=== PATIENT | female | born 1935 | race Caucasian/White ===

== ENCOUNTER 2019-07-23 21:55 | Inpatient (IN) | payer MEDICARE, BC ==
[2019-07-23] MEDS ORDERED: Fentanyl 100 MCG/2 ML VIAL ONE (22:25)
[2019-07-23 22:34] LABS: #Basophils 0.1 thou/uL (0.0-0.2); #Eosinphils 0.1 thou/uL (0.0-0.7); #Lymphocytes 3.4 thou/uL (1.20-3.40); #Monocytes 0.4 thou/uL (0.11-0.59); #Neutrophils 3.1 thou/uL (1.40-6.50); %Basophils 1.3 % (0.0-1.0); %Eosinophils 1.4 % (0.0-10.0); %Lymphocytes 47.9 % (21.0-51.0); %Monocytes 5.7 % (0.0-10.0); %Neutrophils 43.7 % (42.0-75.0); Hemoglobin 13.6 g/dL (12.0-16.0); Mean Corpuscular HGB CONC 34.2 g/dL (32.0-36.0); Mean Corpuscular Hemoglobin 33.5 pg (27.0-31.0); Mean Corpuscular Volume 97.7 fL (78.0-98.0); Mean Platelet Volume 9.9 fL (7.4-10.4); Platelet Count 170 thou/uL (130-400); RBC Distribution Width 11.1 % (11.5-14.5); Red Blood Cell (RBC) Count 4.07 mill/uL (4.20-5.40); White Blood Cell (WBC) Count 7.1 thou/uL (4.8-10.8)
--- NOTE | 2019-07-23 22:52 | RAD ---
XR Femur Rt 2 View STANDARD History: Trauma. Fall Comparison: None. Findings: Right subcapital femoral neck fracture with lateral displacement. Remainder of the femur ap pears be intact including the right knee arthroplasty. Impression: Subcapital right femoral neck fracture with lateral displacement 2.3 cm.
--- NOTE | 2019-07-23 23:03 | RAD ---
XR Pelvis AP STANDARD History: Fall Comparison: None. Findings: Subcapital right femoral neck fracture with lateral displacement. The right obturator ring is intact. Left femoral neck appears to be intact. Mild narrowing of the pubic symphysis. Impression: Displaced right subcapital femoral neck fracture.
[2019-07-23 23:39] LABS: ALT (SGPT) 15 U/L (8-55); AST (SGOT) 24 U/L (5-34); Albumin 3.8 g/dL (3.4-4.8); Alkaline Phosphatase 58 U/L (40-110); Anion Gap 12 mmol/L (10-20); BUN (Urea Nitrogen) 30 mg/dL (9.8-20.1); Bilirubin, Total 0.3 mg/dL (0.2-1.2); Calc. Creatinine Clearance 0 mL/min (70-130); Calcium 8.7 mg/dL (7.8-10.44); Carbon Dioxide 25 mmol/L (23-31); Chloride 107 mmol/L (98-107); Estimated GFR-MDRD 65; Glucose 107 mg/dL (83-110); Potassium 3.7 mmol/L (3.5-5.1); Protein, Total 6.8 g/dL (6.0-8.3); Sodium 140 mmol/L (136-145)
[2019-07-24] MEDS ORDERED: Morphine 2 MG/ML SYRINGE ONE (00:04)
[2019-07-24] MEDS ORDERED: Ondansetron PF 4 MG/2 ML Vial ONE ×2 (00:06→10:51)
[2019-07-24] MEDS ORDERED: Dextrose 5% in Water 1,000 ML IV PRN (01:20)
[2019-07-24] MEDS ORDERED: Cyclobenzaprine 10 MG TAB PO PRN (01:20)
[2019-07-24] MEDS ORDERED: traMADol HCl 50 MG TAB PO PRN ×2 (01:20)
[2019-07-24] MEDS ORDERED: Dextrose 50% Abboject 50 ML SYRINGE SLOW IVP PRN (01:20)
[2019-07-24] MEDS ORDERED: hydrALAZINE 20 MG/ML VIAL SLOW IVP PRN (01:20)
[2019-07-24] MEDS: Morphine 2 MG/ML SYRINGE SLOW IVP PRN ×4 (01:40→09:16)
[2019-07-24] MEDS: Ondansetron PF 4 MG/2 ML Vial IVP PRN (01:40)
[2019-07-24] MEDS: Acetaminophen 325 MG TAB PO SCH ×4 (01:42→20:35)
[2019-07-24] MEDS: Ibuprofen 600 MG TAB PO SCH ×3 (01:46→17:13)
[2019-07-24] MEDS: Sodium Chloride 0.9% 1,000 ML IV SCH ×2 (01:46→10:42)
--- NOTE | 2019-07-24 01:53 | HP ---
This is Jim Gandhi PA-C dictating a report for García Ames MD. REQUESTING PHYSICIAN: Dr. Aj. ATTENDING SURGEON: Dr. Ames. CONSULTATIONS: Orthopedics, Dr. Carrillo. HISTORY OF PRESENT ILLNESS: The patient is an 84-year-old woman who was at home when she tripped and fell onto her right hip. She was brought to the emergency department, where she underwent evaluation and examination, was noted to have a right hip fracture. The patient denied loss of consciousness or hitting her head and she denied any syncopal episodes prior to her fall. ALLERGIES: CODEINE, OPIOIDS, AND PENICILLIN. OF NOTE, THE PATIENT RECEIVED FENTANYL AND MORPHINE IN THE EMERGENCY DEPARTMENT WITHOUT ISSUE. CURRENT MEDICATIONS: 1. Metoprolol. 2. Synthroid. 3. Vitamin B6. 4. Folic acid. 5. Aspirin. PAST MEDICAL HISTORY: hypothyroid, hypertension, pacemaker. PAST SURGICAL HISTORY: Bilateral knee replacement and pacemaker placement. 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 SOCIAL HISTORY: The patient lives at home with family. She denies drug, tobacco, or alcohol use. REVIEW OF SYSTEMS: 10-point review of systems is negative as otherwise stated. PHYSICAL EXAMINATION: VITAL SIGNS: Blood pressure 169/79, heart rate 73, respirations 18, oxygen saturation 94% on room air, and temperature is 98.1. GENERAL: The patient is resting comfortably in bed. She is awake, alert, and oriented x3. [place] Coma Scale is 15. HEENT: Head is normocephalic atraumatic. Eyes, extraocular motion intact. PERRLA bilaterally. Ears are atraumatic without discharge. Nose is atraumatic without discharge. Oropharynx is clear. NECK: Nontender. Trachea is midline with no JVD. CHEST: Clear to auscultation with good inspiratory and expiratory effort. HEART: Regular rate and rhythm. ABDOMEN: Soft, flat with active bowel sounds. EXTREMITIES: Neurovascularly intact x4. The patient has tenderness to palpation to the right hip consistent with her fracture. BACK: By report is atraumatic and nontender. LABORATORY FINDINGS: White blood cell count 7.1, hemoglobin 13.6, hematocrit 39.8, platelets 170. Sodium 140, potassium 3.7, chloride 107, CO2 of 25, BUN 30, creatinine 0.83, glucose 65. LFTs are unremarkable. RADIOGRAPHIC REPORTS: AP pelvis shows a displaced right subcapital femoral neck fracture. Views of the right femur again show the subcapital right femoral neck fracture with lateral displacement. ASSESSMENT: 1. Status post ground level fall. 2. Right femoral neck fracture. 3. Acute pain secondary to above. 4. History of hypothyroid, hypertension, and pacemaker. PLAN: Plan will be to admit the patient to the surgical floor. She will be made n.p.o. after midnight. She will have pain control, pulmonary toilet, gastritis, mechanical VTE prophylaxis. Postoperatively, we will begin physical and occupational therapy and discuss placement at that time. The evaluation, examination, laboratory, and radiographic findings were discussed with Dr. Carrillo and Dr. Ames. Job ID: [id number] [facility]
[2019-07-24 02:14] VITALS: BMI 27.8
[2019-07-24 06:21] LABS: Prothrombin Time 13.1 SEC (12.0-14.7)
[2019-07-24 06:22] LABS: PTT 28.4 SEC (22.9-36.1)
[2019-07-24 06:23] LABS: #Lymphocytes 1.1 thou/uL (1.20-3.40); #Monocytes 0.5 thou/uL (0.11-0.59); %Basophils 0.1 % (0.0-1.0); %Eosinophils 0.1 % (0.0-10.0); %Lymphocytes 11.8 % (21.0-51.0); %Monocytes 4.7 % (0.0-10.0); %Neutrophils 83.3 % (42.0-75.0); Hemoglobin 12.6 g/dL (12.0-16.0); Mean Corpuscular HGB CONC 34.6 g/dL (32.0-36.0); Mean Corpuscular Volume 98.4 fL (78.0-98.0); Mean Platelet Volume 9.6 fL (7.4-10.4); Platelet Count 144 thou/uL (130-400); RBC Distribution Width 10.9 % (11.5-14.5); White Blood Cell (WBC) Count 9.7 thou/uL (4.8-10.8)
[2019-07-24 06:39] LABS: Anion Gap 11 mmol/L (10-20); BUN (Urea Nitrogen) 23 mg/dL (9.8-20.1); Calc. Creatinine Clearance 63 mL/min (70-130); Calcium 8.2 mg/dL (7.8-10.44); Carbon Dioxide 23 mmol/L (23-31); Chloride 107 mmol/L (98-107); Estimated GFR-MDRD 71; Glucose 125 mg/dL (83-110); Magnesium 1.9 mg/dL (1.6-2.6); Phosphorus 3.4 mg/dL (2.3-4.7); Potassium 3.5 mmol/L (3.5-5.1); Sodium 137 mmol/L (136-145)
[2019-07-24] MEDS ORDERED: Clindamycin/D5W 900 MG in Premix Bag 1 BAG IVPB SCH ×2 (08:00→14:00)
[2019-07-24] MEDS ORDERED: Non-Formulary Item 1 EACH (Cyanocobalamin (Vitamin B-12) [Vitamin B-12] 1,000 MCG) PO SCH (09:00)
[2019-07-24] MEDS ORDERED: Non-Formulary Item 1 EACH (Folic Acid [Folic Acid] 0.4 MG) PO SCH (09:00)
[2019-07-24] MEDS ORDERED: Famotidine 20 MG TAB PO SCH (09:00)
[2019-07-24] MEDS ORDERED: FATTY ACIDS PO SCH (09:00)
[2019-07-24] MEDS ORDERED: FISH OIL PO SCH (09:00)
[2019-07-24] MEDS ORDERED: OMEGA PO SCH (09:00)
[2019-07-24] MEDS ORDERED: METOPROLOL SUCCINATE 100 MG PO SCH (09:00)
[2019-07-24] MEDS ORDERED: [UNRECOGNIZED DRUG - OTHER] PO SCH (09:00)
--- NOTE | 2019-07-24 10:14 | CON ---
DATE OF CONSULTATION: CHIEF COMPLAINT: Right hip pain. HISTORY OF PRESENT ILLNESS: Ms. Martin is an 84-year-old female, who presents to the emergency department after a fall yesterday evening. The patient lost her balance in her kitchen and fell on a tile floor. She landed hard on her right hip. She had immediate pain. She was unable to ambulate. She had a deformity of her leg. She was taken to the emergency department, where x-rays were obtained, which demonstrated a right femoral neck fracture. She has been admitted to the hospital. She is resting comfortably currently. Her pain has been controlled. She is having no hemodynamic instability. ALLERGIES: TO CODEINE, OPIOIDS, AND PENICILLIN. MEDICATIONS: 1. Metoprolol. 2. Synthroid. 3. Vitamin B6. 4. Folic acid. 5. Aspirin. PAST MEDICAL HISTORY: Hypothyroidism, hypertension, and previous pacemaker placement. PAST SURGICAL HISTORY: The patient has had bilateral total knee arthroplasties as well as pacemaker placement. SOCIAL HISTORY: The patient lives at home with her family. She is independent. She does not use a walker or cane. REVIEW OF SYSTEMS: The patient has right hip pain with motion. Otherwise, negative 10-point review of systems. FAMILY MEDICAL HISTORY: Noncontributory. PHYSICAL EXAMINATION: VITAL SIGNS: Temperature is 97.5, pulse is 70, respiratory rate is 18, oxygen saturation 94%, and blood pressure is 135/78. GENERAL: She is alert, lying supine, no apparent distress. RESPIRATORY: Breathing comfortably. ABDOMEN: Soft, nontender, and nondistended. MUSCULOSKELETAL: The right lower extremity has shortening and external rotation. She is neurovascularly intact in the foot and ankle. She has a palpable pulse. She has skin intact. Upper extremities are atraumatic. IMAGING DATA: X-rays of the right femur and pelvis are reviewed. These demonstrate a displaced right femoral neck fracture. This is acute. IMPRESSION: Right femoral neck fracture in an elderly female. PLAN: The patient will need to go to surgery today. We will proceed with hemiarthroplasty of the hip to restore the ability to mobilize and prevent complications of prolonged bedrest. Goal of surgery is to also provide pain relief. The patient is at risk for complications given her age and comorbidities. She will have antibiotic and DVT prophylaxis. Job ID: [id number]
[2019-07-24] MEDS: Cyanocobalamin (Vitamin B-12) 1,000 MCG TAB PO SCH (10:25)
[2019-07-24] MEDS: Fish Oil 1,000 MG CAP PO SCH (10:25)
[2019-07-24] MEDS: Folic Acid 1 MG TAB PO SCH (10:25)
[2019-07-24] MEDS: Levothyroxine Sodium 112 MCG TAB PO SCH (10:26)
[2019-07-24] MEDS ORDERED: Fentanyl 100 MCG/2 ML VIAL ONE (10:31)
[2019-07-24 10:39] LABS: Bacteria/HPF 2+ HPF (None Seen); Bilirubin Negative (Negative); Blood, Urine Trace (Negative); Clarity Extra Turbid (Clear); Glucose, Urine (Dipstick) Normal (Negative); Leukocyte 250 Leu/uL (Negative); Nitrite Negative (Negative); Protein, Urine (Dipstick) 70 mg/dL (Neg-Trace); Squamous Epithelial 0-3 HPF (0-3); Transitional Epithelial 0-3 HPF (None Seen); Triple Phosphate Crystal 1+ HPF (None Seen); Urobilinogen Normal mg/dL (Less than 2); WBC/HPF 21-50 HPF (0-3)
[2019-07-24 10:42] LABS: Urine Culture Reflex Yes Yes
[2019-07-24] MEDS ORDERED: Lidocaine 1% PF 5 ML VIAL ONE (10:51)
[2019-07-24] MEDS ORDERED: PHENYLEPHRINE-NS 100 MCG/ML 10 ML SYRINGE ONE (10:51)
[2019-07-24] MEDS ORDERED: Glycopyrrolate 0.2 MG/ML 5 ML SYRINGE ONE (10:51)
[2019-07-24] MEDS ORDERED: Rocuronium Bromide 10 MG/ML (10ML VIAL) ONE (10:51)
[2019-07-24] MEDS ORDERED: PROPOFOL 200 MG/20 ML VIAL ONE (10:51)
[2019-07-24] MEDS ORDERED: cefTRIAXone\\ROCEPHIN 1 GM in Sodium Chloride 0.9% 100 ML IVPB SCH (11:00)
[2019-07-24] MEDS ORDERED: Clindamycin/D5W 900 mg/50 ml Premix Bag ONE (12:01)
[2019-07-24] MEDS ORDERED: Levofloxacin 500 mg/D5W 100 ml Premix Bag ONE (12:01)
--- NOTE | 2019-07-24 12:52 | PRG ---
DATE OF SERVICE: 07/24/2019 SUBJECTIVE: This is a woman who tripped and fell yesterday and sustained a femoral neck fracture of her right hip. She was not complaining of any musculoskeletal pain this morning. Prior to her fall yesterday, she had started feeling the onset of the burning symptoms when she urinated. She reports she still feels this burning today. She had not seen any physician prior to admission nor started antibiotics for the symptoms. Otherwise, she is n.p.o., awaiting surgery. OBJECTIVE: VITAL SIGNS: Stable. GENERAL: Well appearing, in no acute distress. RESPIRATORY: Nonlabored breathing. Clear to auscultation bilaterally. CARDIAC: Regular rate and rhythm. No murmurs. ABDOMEN: Nondistended. Mild suprapubic tenderness, although when pressure was applied, the patient mostly felt the urge to urinate. EXTREMITIES: Neurovascularly intact x4. LABORATORY DATA: White blood count 9.7, hemoglobin 12.6, hematocrit 36.4, platelets 144. Chemistries; sodium 137, potassium 3.5, chloride 107, carbon dioxide 23, BUN 23, creatinine 0.77, glucose 125, calcium 8.2, phosphorus 3.4, magnesium 1.9. Her urinalysis this morning showed extra turbid urine, protein of 70, urine blood trace, urine nitrite negative, urine leukocyte esterase 250, urine red blood cells 4 to 6, urine white blood cells 21 to 50, urine squamous epithelial cells 0 to 3, triple phosphate crystals 1+, amorphous crystals 2+, urine bacteria 2+. She has urine culture pending. ASSESSMENT: 1. Status post ground level fall. 2. Right femoral neck fracture. 3. Acute pain secondary to above. 4. Urinary tract infection, present prior to admission. 5. History of hypothyroidism, hypertension, and pacemaker. PLAN: The patient will have surgery today. She will begin physical and occupational therapy after surgery. We will begin ceftriaxone for the patient's apparent UTI and may transition antibiotics once urine culture results. We will begin physical and occupational therapy after surgery and work on placement. Job ID: [id number] [facility]
[2019-07-24] MEDS ORDERED: Promethazine HCl 25 MG/ML VIAL SLOW IVP PRN (14:01)
[2019-07-24] MEDS ORDERED: Promethazine HCl 25 MG/ML VIAL IM PRN (14:01)
[2019-07-24] MEDS ORDERED: Ondansetron HCl/PF 4 MG/2 ML Vial IVP PRN (14:01)
--- NOTE | 2019-07-24 14:18 | RAD ---
XR Hip Rt 1 View HISTORY: Right hip arthroplasty FINDINGS: There are recent postop changes of right hip arthroplasty in good position and alignment.
--- NOTE | 2019-07-24 14:18 | RAD ---
XR Pelvis AP STANDARD HISTORY: Right hip arthroplasty FINDINGS: There are recent postop changes of right hip arthroplasty in good position and alignment.
--- NOTE | 2019-07-24 19:52 | OP ---
DATE OF PROCEDURE: 07/24/2019 PROCEDURE PERFORMED: Right hip hemiarthroplasty. PREOPERATIVE DIAGNOSIS: Right femoral neck fracture. POSTOPERATIVE DIAGNOSIS: Right femoral neck fracture. COMPLICATIONS: None. ESTIMATED BLOOD LOSS: 150 mL. PRECISION THREAD GRINDER OPERATOR: Micah Boyle PA-C IMPLANTS: DePuy size 5 basic press-fit stem [place], bipolar shell 44 mm with a +5 neck length. INDICATIONS: Ms. Martin is an 84-year-old female who has fallen and fractured her right femoral neck. She was indicated for hemiarthroplasty of the hip to restore function, relieve pain and promote mobilization. Risks have been reviewed in detail. She elected to proceed with the operation. DESCRIPTION OF PROCEDURE: Ms. Martin was identified in the preoperative holding area. Her correct extremity was marked. She was carried to the operating room. She was positioned supine. General anesthesia was induced. A multidisciplinary time-out was performed. The right lower extremity was prepped and draped in sterile fashion. We began the procedure with posterior approach to the hip. We dissected down through the subcutaneous tissues and opened the fascia. We then explored the underlying tissues. The short external rotators and capsule were incised. This exposed the underlying femoral head. We removed the femoral head. We then removed multiple bony fragments. At this point, we made a new osteotomy of the femoral neck. We then exposed the proximal femur and began preparation of the canal. We entered the intramedullary canal and lateralized. Next, we reamed up to a size 6. We then impacted our broaches from a size 2 to a size 6. We trialed off this. We then reduced the hip. We had a stable hip with good range of motion. We removed the trial components. We thoroughly irrigated with copious lavage. We then impacted the final hip stem and bipolar head and shell. Again, the hip was reduced. We checked stability once more and leg length, which was appropriately. We then proceeded with closure. The short external rotators and capsule were repaired with #5 Ethibond suture through drill holes in the trochanter. This was followed by fascial closure, subcutaneous closure, and skin closure. A sterile dressing was applied. The patient was taken to the recovery room at this point in good condition. Job ID: [id number]
[2019-07-24] MEDS: Senokot S 8.6-50 MG TAB PO SCH (20:35)
[2019-07-24] MEDS: Clindamycin/D5W 900 MG in Premix Bag 1 BAG IVPB SCH (20:35)
[2019-07-24] MEDS: Famotidine 20 MG TAB PO SCH (20:35)
[2019-07-25] MEDS: Ibuprofen 600 MG TAB PO SCH ×3 (01:38→17:19)
[2019-07-25] MEDS: Acetaminophen 325 MG TAB PO SCH ×4 (01:38→18:22)
--- NOTE | 2019-07-25 02:22 | PRG ---
DATE OF SERVICE: 07/25/2019 SUBJECTIVE: The patient is currently on the surgical floor. She was admitted to the hospital yesterday, status post ground level fall and today underwent right hip hemiarthroplasty for a right femoral neck fracture. She tolerated this procedure well. She did not get back to the floor early enough to work with Physical Therapy, but she is currently tolerating a diet and her pain is controlled. OBJECTIVE: VITAL SIGNS: Stable. The patient is afebrile. GENERAL: She is resting comfortably in bed. She is awake, alert, and oriented x3. [place] Coma Scale is 15. LUNGS: Clear to auscultation bilaterally. HEART: Regular rate and rhythm. ABDOMEN: Soft, flat, nontender with active bowel sounds. EXTREMITIES: Neurovascularly intact x4. Postop dressing is clean, dry, and intact. ASSESSMENT: 1. Status post ground level fall. 2. Status post right femoral neck fracture treated with right hip hemiarthroplasty. 3. Urinary tract infection, present on admission under treatment. 4. History of hypothyroidism, hypertension, and pacemaker. PLAN: Will be to continue supportive care. Encourage physical and occupational therapy and await placement decision. Job ID: [id number]
[2019-07-25] MEDS: Clindamycin/D5W 900 MG in Premix Bag 1 BAG IVPB SCH (04:26)
[2019-07-25] MEDS: Cepastat Lozenges 1 LOZ PO PRN ×3 (05:20→18:29)
[2019-07-25] MEDS ORDERED: Sulfameth/Trimethoprim DS 800-160mg TAB PO SCH (09:00)
[2019-07-25] MEDS: Levothyroxine Sodium 112 MCG TAB PO SCH (09:02)
[2019-07-25] MEDS: Fish Oil 1,000 MG CAP PO SCH (09:02)
[2019-07-25] MEDS: Famotidine 20 MG TAB PO SCH ×2 (09:03→21:13)
[2019-07-25] MEDS: Senokot S 8.6-50 MG TAB PO SCH ×2 (09:03→21:13)
[2019-07-25] MEDS: Cyanocobalamin (Vitamin B-12) 1,000 MCG TAB PO SCH (09:03)
[2019-07-25] MEDS: Folic Acid 1 MG TAB PO SCH (09:03)
[2019-07-25] MEDS: Polyethylene Glycol 3350 17 GM Packet PO SCH (09:04)
[2019-07-25] MEDS: Sulfameth/Trimethoprim DS 800-160mg TAB PO SCH ×2 (09:17→21:12)
--- NOTE | 2019-07-25 09:59 | PRG ---
DATE OF SERVICE: 07/25/2019 SUBJECTIVE: Yamilet is an 84-year-old female, postop day 1 from a right hip hemiarthroplasty secondary to femoral neck fracture. She is doing relatively well today. She has a very little in way of complaints, and she is far more comfortable than she was yesterday. OBJECTIVE: VITAL SIGNS: Temperature 97.8, pulse 82, respiratory rate is 12 and nonlabored, O2 saturation is 93% on room air, blood pressure is 120/72. GENERAL: She is alert and oriented to person, place, time, situation, responsive, appropriate with examiner. Grossly nonfocal. EXTREMITIES: Her incision is clean. There is no strikethrough. No shortening or malrotation of her lower extremities. She is fully intact with good neurovascular status. Full digital excursion. LABORATORY DATA: Hemoglobin and hematocrit 12.6 and 36.4. IMPRESSION: An 84-year-old female, postop day 1, from a right press-fit bipolar hemiarthroplasty. PLAN: Continue current care. The patient, I believes, is planning on being placed for alf. We will continue to follow. Job ID: [id number]
--- NOTE | 2019-07-25 16:28 | PRG ---
DATE OF SERVICE: 07/25/2019 SUBJECTIVE: Ms. Martin is an 84-year-old female, status post ground level fall. She sustained right hip fracture. She underwent ORIF of right hip fracture yesterday. The patient also sustained urinary tract infection on admission with a history of hypothyroid, hypertension, and pacemaker. Postop, the patient reports she is doing good. Pain is well controlled with just ibuprofen. She refused tramadol and Tylenol. She tolerated with her regular diet. She developed no fever or shortness of breath. Her vital signs have been stable. The patient will be working with Physical Therapy today to determine her placement. OBJECTIVE: GENERAL: The patient is lying in bed comfortable with no acute respiratory distress. VITAL SIGNS: Temperature 97.8, heart rate 82, respiratory rate 12, O2 saturation 93% on room air, and blood pressure 128/72. LUNGS: Clear bilaterally. HEART: Regular rate and rhythm. ABDOMEN: Soft, nondistended. EXTREMITIES: Neurovascularly intact x4. NEUROLOGY: No focal neurology deficits. Postop dressing is clean, dry, and intact. ASSESSMENT: 1. Status post ground level fall. 2. Right hip fracture, status post open reduction and internal fixation of right hip fracture. 3. Urinary tract infection, treated. 4. History of hypothyroid, hypertension, pacemaker, stable. PLAN: Plan will be to continue supportive care. Continue pain control. The patient will be working with PT/OT today. Initiate DVT prophylaxis with Lovenox. Anticipate placement in rehabilitation facility. The patient was seen and evaluated with Dr. Castillo on round this morning. Job ID: [id number]
[2019-07-25] MEDS ORDERED: Enoxaparin Sodium 40 MG/0.4 ML SYRINGE SC SCH (21:00)
--- NOTE | 2019-07-26 00:21 | PRG ---
DATE OF SERVICE: 07/25/2019 SUBJECTIVE: The patient is currently on the surgical floor. She is postop day 1, status post open reduction and internal fixation of a right hip fracture. Today, she began working with Physical and Occupational Therapy. She is tolerating a diet. Her pain is controlled. The patient is also under treatment for urinary tract infection. Her microbiology came back with the sensitivities and she is on the appropriate antibiotics. PHYSICAL EXAMINATION: VITAL SIGNS: Stable. The patient is afebrile. GENERAL: The patient is resting comfortably in bed. She was asleep when I entered the room. She did wake up with gentle verbal stimuli and states that her pain is controlled currently and she has no complaints. RESPIRATIONS: Nonlabored. EXTREMITIES: Neurovascularly intact x4. Postop dressing is clean, dry, and intact. ASSESSMENT/PLAN: 1. Status post ground level fall. 2. Postop day #1, status post open reduction and internal fixation of right hip fracture. 3. Urinary tract infection, present on admission, treated. 4. History of hypothyroidism, hypertension, pacemaker. PLAN: Plan will be to continue supportive care. Encourage Physical and Occupational Therapy and await placement decision. Job ID: [id number]
[2019-07-26] MEDS: Ibuprofen 600 MG TAB PO SCH ×2 (01:26→09:44)
[2019-07-26] MEDS: Acetaminophen 325 MG TAB PO SCH ×2 (01:26→06:22)
[2019-07-26] MEDS: Ondansetron ODT 4 MG TAB PO PRN ×2 (03:09→08:36)
[2019-07-26] MEDS ORDERED: Calcium Carbonate 500 MG ChewTAB PO PRN (04:19)
[2019-07-26] MEDS: Ondansetron PF 4 MG/2 ML Vial IVP PRN (08:31)
[2019-07-26] MEDS: Cyanocobalamin (Vitamin B-12) 1,000 MCG TAB PO SCH (09:41)
[2019-07-26] MEDS: Senokot S 8.6-50 MG TAB PO SCH (09:41)
[2019-07-26] MEDS: Sulfameth/Trimethoprim DS 800-160mg TAB PO SCH (09:41)
[2019-07-26] MEDS: Famotidine 20 MG TAB PO SCH (09:41)
[2019-07-26] MEDS: Fish Oil 1,000 MG CAP PO SCH (09:41)
[2019-07-26] MEDS: Folic Acid 1 MG TAB PO SCH (09:41)
[2019-07-26] MEDS: Levothyroxine Sodium 112 MCG TAB PO SCH (09:41)
[2019-07-26] MEDS: Polyethylene Glycol 3350 17 GM Packet PO SCH (09:42)
[2019-07-26] MEDS ORDERED: Pantoprazole 40 MG VIAL IVP SCH (10:45)
[2019-07-26 11:16] VITALS: BP 135/74; TEMP 98.3
[2019-07-26] MEDS ORDERED: Acetaminophen 500 MG TAB PO SCH (12:00)
--- NOTE | 2019-07-26 16:12 | DIS ---
DATE OF ADMISSION: 07/23/2019 DATE OF DISCHARGE: 07/26/2019 ADMISSION DIAGNOSES: 1. Status post ground level fall. 2. Right hip fracture. 3. Urinary tract infection at admission. 4. History of hypothyroid, hypertension, and pacemaker. DISCHARGE DIAGNOSES: 1. Status post ground level fall. 2. Right hip fracture, status post open reduction and internal fixation of right hip fracture. 3. Urinary tract infection, treated. 4. History of hypothyroid, hypertension, and pacemaker, stable. CONSULTING PHYSICIAN: Dr. Carrillo. PROCEDURE PERFORMED: Right hip hemiarthroplasty. HOSPITAL COURSE: Ms. Martin is an 84-year-old female, status post ground level fall. She sustained right hip fracture. She underwent ORIF of right hip fracture, hemiarthroplasty. The patient also suffered from uncomplicated urinary tract infection at admission and had been treated successfully with Rocephin and Bactrim. Postsurgery, the patient has been doing well in regard to pain control. She worked with Physical Therapy, and she walked around the floor. She tolerated with her regular diet. Her vital signs have been stable. She developed no fever or shortness of breath. Her bowel movement is normal. She has been accepted to rehabilitation facility. PHYSICAL EXAMINATION: GENERAL: The patient is lying down in bed comfortable with no acute respiratory distress. VITAL SIGNS: Temperature 98.3, heart rate 70, respiratory rate 20, O2 saturation 92% on room air, blood pressure 135/74. LUNGS: Clear bilaterally. HEART: Regular rate and rhythm. ABDOMEN: Soft and nondistended. EXTREMITIES: Neurovascularly intact x4. NEUROLOGIC: No focal neurological deficits. DISCHARGE DISPOSITION: Rehabilitation facility. DISCHARGE CONDITION: Fair. DISCHARGE INSTRUCTIONS: The patient is to take medication as directed. The patient is to continue working with Physical Therapy and Occupational Therapy. The patient is to continue DVT prophylaxis with Lovenox. DISCHARGE MEDICATIONS: 1. Tylenol. 2. Protonix. 3. Resume all home medication. Job ID: [id number]
[2019-07-27] MEDS ORDERED: Pantoprazole 40 MG GRANULES PACKET PO SCH ×2 (09:00)
== END 2019-07-26 15:09 | DRG 470 ==
LOC: ERS 21:55 → T4-A 23:13 → SURG A 07-24 14:46
PROVIDERS: ADMIT Specialist; ATTEND Specialist
PROC: 0SRR01A Replacement of Right Hip Joint, Femoral Surface with Metal Synthetic Substitute, Uncemented, Open Approach (ICD-10-PCS; principal; 2019-07-24)
DX: S72.011A Unspecified intracapsular fracture of right femur, initial encounter for closed fracture (principal); N39.0 Urinary tract infection, site not specified; E03.9 Hypothyroidism, unspecified; Z96.653 Presence of artificial knee joint, bilateral; I10 Essential (primary) hypertension; W01.0XXA Fall on same level from slipping, tripping and stumbling without subsequent striking against object, initial encounter; Y92.009 Unspecified place in unspecified non-institutional (private) residence as the place of occurrence of the external cause; Z95.0 Presence of cardiac pacemaker; Z79.899 Other long term (current) drug therapy; Z79.890 Hormone replacement therapy; Z79.82 Long term (current) use of aspirin; Z88.5 Allergy status to narcotic agent; Z88.0 Allergy status to penicillin; Z88.8 Allergy status to other drugs, medicaments and biological substances
CPT/HCPCS: 36415; 72170; 80048; 80053; 81001; 83735; 84100; 85025; 85610; 85730; 87077; 87086; 87186; 93005; 96374; 96375; J0696; J1650; J1956; J2001; J2270; J2405; J2704; J3010; J3490; Q0162

== ENCOUNTER 2021-03-09 16:36 | Emergency (ER) | payer MEDICARE, BC ==
[~2021-03-09 16:36] MED LIST: Iopamidol-370 76% 500 ML 1 ML ONE
[2021-03-09] MEDS ORDERED: Ketorolac Tromethamine 30 MG/ML VIAL ONE ×2 (17:30→17:35)
[2021-03-09] MEDS ORDERED: Acetaminophen 500 MG TAB ONE (17:30)
[2021-03-09 17:52] LABS: #Basophils 0.1 thou/uL (0.0-0.2); #Lymphocytes 1.3 thou/uL (1.20-3.40); #Monocytes 0.5 thou/uL (0.11-0.59); #Neutrophils 6.7 thou/uL (1.40-6.50); %Basophils 1.1 % (0.0-1.0); %Eosinophils 0.3 % (0.0-10.0); %Lymphocytes 14.7 % (21.0-51.0); %Monocytes 5.2 % (0.0-10.0); %Neutrophils 78.6 % (42.0-75.0); Hemoglobin 15.1 g/dL (12.0-16.0); Mean Corpuscular HGB CONC 34.4 g/dL (32.0-36.0); Mean Corpuscular Hemoglobin 33.7 pg (27.0-31.0); Mean Platelet Volume 10.3 fL (7.4-10.4); Platelet Count 169 thou/uL (130-400); RBC Distribution Width 11.2 % (11.5-14.5); Red Blood Cell (RBC) Count 4.48 mill/uL (4.20-5.40); White Blood Cell (WBC) Count 8.6 thou/uL (4.8-10.8)
[2021-03-09 18:21] LABS: ALT (SGPT) 12 U/L (8-55); AST (SGOT) 23 U/L (5-34); Alkaline Phosphatase 67 U/L (40-110); Anion Gap 18 mmol/L (10-20); BUN (Urea Nitrogen) 33 mg/dL (9.8-20.1); Bilirubin, Total 0.9 mg/dL (0.2-1.2); Calc. Creatinine Clearance 0 mL/min (70-130); Calcium 9.6 mg/dL (7.8-10.44); Carbon Dioxide 19 mmol/L (23-31); Chloride 101 mmol/L (98-107); Globulin 3.4 g/dL (2.4-3.5); Glucose 102 mg/dL (83-110); Potassium 3.4 mmol/L (3.5-5.1); Protein, Total 7.4 g/dL (5.8-8.1); Sodium 135 mmol/L (136-145)
[2021-03-09 21:14] LABS: Bacteria/HPF 4+ HPF (None Seen); Bilirubin Negative (Negative); Blood, Urine 1+ (Negative); Clarity Clear (Clear); Glucose, Urine (Dipstick) Normal (Negative); Ketone, Urine 20 mg/dL (Negative); Leukocyte 75 Leu/uL (Negative); Nitrite Negative (Negative); Protein, Urine (Dipstick) 10 mg/dL (Neg-Trace); Renal Epithelial 0-3 HPF (None Seen); Specific Gravity, Urine 1.037 (1.002-1.036); Squamous Epithelial 0-3 HPF (0-3); Urobilinogen Normal mg/dL (Less than 2)
[2021-03-09] MEDS ORDERED: Nitrofurantoin Macrocrystal 50 MG CAP PO SCH (21:45)
[2021-03-09] MEDS ORDERED: Nitrofurantoin Monohyd/M-Cryst 100 MG CAP PO SCH (21:45)
== END 2021-03-09 22:28 ==
LOC: ERS 16:36
DX: S22.089A Unspecified fracture of T11-T12 vertebra, initial encounter for closed fracture (principal); R53.1 Weakness; N39.0 Urinary tract infection, site not specified; E03.9 Hypothyroidism, unspecified; I10 Essential (primary) hypertension; X58.XXXA Exposure to other specified factors, initial encounter
CPT/HCPCS: 36415; 71275; 74174; 80053; 81003; 81015; 83605; 83880; 84484; 85025; 87040; 87077; 87086; 87186; 93005; 96374; J1885; Q9967

== ENCOUNTER 2021-11-30 19:58 | Emergency (ER) | payer MEDICARE, BC ==
[2021-11-30 23:06] LABS: #Eosinphils 0.1 thou/uL (0.0-0.7); #Monocytes 0.4 thou/uL (0.11-0.59); #Neutrophils 3.2 thou/uL (1.40-6.50); %Basophils 0.9 % (0.0-1.0); %Eosinophils 2.2 % (0.0-10.0); %Lymphocytes 34.7 % (21.0-51.0); %Monocytes 6.5 % (0.0-10.0); %Neutrophils 55.8 % (42.0-75.0); Hemoglobin 11.4 g/dL (12.0-16.0); Mean Corpuscular HGB CONC 33.1 g/dL (32.0-36.0); Mean Corpuscular Hemoglobin 31.8 pg (27.0-31.0); Mean Corpuscular Volume 95.9 fL (78.0-98.0); Mean Platelet Volume 8.1 fL (7.4-10.4); Platelet Count 262 thou/uL (130-400); RBC Distribution Width 12.6 % (11.5-14.5); White Blood Cell (WBC) Count 5.7 thou/uL (4.8-10.8)
[2021-11-30 23:30] LABS: ALT (SGPT) 11 U/L (8-55); AST (SGOT) 21 U/L (5-34); Albumin 3.7 g/dL (3.4-4.8); Alkaline Phosphatase 55 U/L (40-110); Anion Gap 15 mmol/L (10-20); BUN (Urea Nitrogen) 21 mg/dL (9.8-20.1); Bilirubin, Total 0.4 mg/dL (0.2-1.2); Calc. Creatinine Clearance 0 mL/min (70-130); Calcium 9.3 mg/dL (7.8-10.44); Carbon Dioxide 24 mmol/L (23-31); Chloride 105 mmol/L (98-107); Globulin 4.2 g/dL (2.4-3.5); Glucose 81 mg/dL (83-110); Potassium 3.8 mmol/L (3.5-5.1); Protein, Total 7.9 g/dL (5.8-8.1); Sodium 140 mmol/L (136-145)
[2021-11-30 23:58] LABS: Bilirubin Negative (Negative); Blood, Urine Negative (Negative); Clarity Turbid (Clear); Glucose, Urine (Dipstick) Normal (Negative); Ketone, Urine Negative (Negative); Leukocyte Negative Leu/uL (Negative); Nitrite 2+ (Negative); Protein, Urine (Dipstick) Negative (Neg-Trace); RBC/HPF 0-3 HPF (0-3); Specific Gravity, Urine 1.013 (1.002-1.036); Squamous Epithelial 0-3 HPF (0-3); Urobilinogen Normal mg/dL (Less than 2); WBC/HPF 0-3 HPF (0-3)
[2021-12-01 00:03] LABS: Bacteria/HPF 4+ HPF (None Seen)
== END 2021-12-01 01:45 | disposition home or self-care (01) ==
LOC: ERS 19:58
DX: R42 Dizziness and giddiness (principal); M25.552 Pain in left hip; R07.81 Pleurodynia; N39.0 Urinary tract infection, site not specified; E03.9 Hypothyroidism, unspecified; I10 Essential (primary) hypertension; W19.XXXA Unspecified fall, initial encounter
CPT/HCPCS: 70450; 71045; 80053; 81003; 81015; 84443; 84484; 85025; 87077; 87086; 87186; 93005; 96360

== ENCOUNTER 2022-09-27 23:32 | Observation (INO) | payer MEDICARE, BC ==
[2022-09-28 00:24] LABS: #Monocytes 0.4 thou/uL (0.11-0.59); #Neutrophils 3.8 thou/uL (1.40-6.50); %Basophils 0.2 % (0.0-1.0); %Eosinophils 0.5 % (0.0-10.0); %Lymphocytes 18.6 % (21.0-51.0); %Monocytes 8.1 % (0.0-10.0); %Neutrophils 72.6 % (42.0-75.0); Hemoglobin 10.8 g/dL (12.0-16.0); Mean Corpuscular HGB CONC 33.5 g/dL (32.0-36.0); Mean Corpuscular Hemoglobin 31.7 pg (27.0-31.0); Mean Corpuscular Volume 94.5 fl (78.0-98.0); Mean Platelet Volume 8.6 fL (7.4-10.4); Platelet Count 199 10x3/uL (130-400); RBC Distribution Width 12.9 % (11.5-14.5); Red Blood Cell (RBC) Count 3.42 mill/uL (4.20-5.40); White Blood Cell (WBC) Count 5.2 10x3/uL (4.8-10.8)
[2022-09-28 00:50] LABS: ALT (SGPT) 14 U/L (8-55); AST (SGOT) 26 U/L (5-34); Albumin 3.6 g/dL (3.4-4.8); Alkaline Phosphatase 46 U/L (40-110); Anion Gap 14 mmol/L (10-20); BUN (Urea Nitrogen) 28 mg/dL (9.8-20.1); Bilirubin, Total 0.4 mg/dL (0.2-1.2); Calc. Creatinine Clearance 0 mL/min (70-130); Calcium 9.1 mg/dL (7.8-10.44); Carbon Dioxide 26 mmol/L (23-31); Chloride 99 mmol/L (98-107); Estimated GFR 35; Globulin 3.7 g/dL (2.4-3.5); Glucose 117 mg/dL (83-110); Potassium 3.4 mmol/L (3.5-5.1); Protein, Total 7.3 g/dL (5.8-8.1); Sodium 136 mmol/L (136-145)
[2022-09-28 00:53] LABS: Bacteria/HPF 3+ HPF (None Seen); Bilirubin Negative (Negative); Blood, Urine 1+ (Negative); Clarity Turbid (Clear); Glucose, Urine (Dipstick) Normal (Negative); Ketone, Urine Negative (Negative); Leukocyte Negative Leu/uL (Negative); Nitrite Negative (Negative); Protein, Urine (Dipstick) 20 mg/dL (Neg-Trace); Specific Gravity, Urine 1.014 (1.002-1.036); Squamous Epithelial 0-3 HPF (0-3); Urobilinogen Normal mg/dL (Less than 2)
[2022-09-28 00:55] LABS: Actual Bicarbonate (HCO3v) 24 mEq/L (22-28); Base Excess -0.2 mEq/L (-2.0 to +3.0); Calcium, Ionized (venous) 1.07 mmol/L (1.16-1.32); Chloride (VBG) 99 mmol/L (98-106); Hemoglobin (Hb) 11.6 g/dL (11.7-16.1); Potassium (VBG) 3.41 mmol/L (3.70-5.30); Sodium 136.4 mmol/L (133-146); pH (venous) 7.44 (7.32-7.43)
[2022-09-28] MEDS ORDERED: Potassium Chloride 20 MEQ TAB PO SCH (03:15)
[2022-09-28] MEDS ORDERED: Lactated Ringer's 500 ML IV SCH (03:30)
[2022-09-28 03:34] VITALS: BMI 19.9
[2022-09-28 05:15] LABS: Magnesium 2.5 mg/dL (1.6-2.6)
[2022-09-28] MEDS ORDERED: Senokot S 8.6-50 MG TAB PO PRN (06:49)
[2022-09-28] MEDS: Carvedilol 6.25 MG TAB PO SCH ×2 (08:49→20:00)
[2022-09-28] MEDS: Folic Acid 1 MG TAB PO SCH (08:50)
[2022-09-28] MEDS: Cyanocobalamin (Vitamin B-12) 1,000 MCG TAB PO SCH (08:50)
[2022-09-28] MEDS: Apixaban 2.5 MG TAB PO SCH ×2 (08:50→20:00)
[2022-09-28] MEDS: Dronedarone HCl 400 MG TAB PO SCH ×2 (08:50→20:00)
[2022-09-28] MEDS: Levothyroxine Sodium 112 MCG TAB PO SCH (08:50)
[2022-09-28] MEDS: valACYclovir 500 MG TAB PO SCH (08:50)
[2022-09-28] MEDS ORDERED: Non-Formulary Item 1 EACH (Folic Acid [Folic Acid] 0.4 MG Tablet) PO SCH (09:00)
[2022-09-28] MEDS ORDERED: Non-Formulary Item 1 EACH (Cyanocobalamin (Vitamin B-12) [Vitamin B-12] 1,000 MCG Capsule PO SCH (09:00)
[2022-09-28] MEDS ORDERED: Losartan 25 MG TAB PO SCH (11:00)
[2022-09-28] MEDS: Acetaminophen 325 MG TAB PO PRN ×2 (20:00→23:11)
[2022-09-28] MEDS ORDERED: Non-Formulary Item 1 EACH (Omeprazole [Omeprazole] 20 MG Tab.Rap.Dr) PO SCH (21:00)
[2022-09-29] MEDS ORDERED: Losartan 25 MG TAB PO SCH (09:00)
[2022-09-29] MEDS: Dronedarone HCl 400 MG TAB PO SCH (09:00)
[2022-09-29] MEDS: Folic Acid 1 MG TAB PO SCH (09:00)
[2022-09-29] MEDS: valACYclovir 500 MG TAB PO SCH (09:00)
[2022-09-29] MEDS: Carvedilol 6.25 MG TAB PO SCH (09:01)
[2022-09-29] MEDS: Levothyroxine Sodium 112 MCG TAB PO SCH (09:01)
[2022-09-29] MEDS: Apixaban 2.5 MG TAB PO SCH (09:01)
[2022-09-29] MEDS: Cyanocobalamin (Vitamin B-12) 1,000 MCG TAB PO SCH (09:01)
[2022-09-29 16:42] VITALS: BP 158/83; TEMP 98.6
== END 2022-09-29 19:25 ==
LOC: ERS 23:32 → T4-A 09-28 01:44
PROVIDERS: ADMIT Student in an Organized Health Care Education/Training Program; ATTEND Student in an Organized Health Care Education/Training Program
DX: R53.1 Weakness (principal); B02.9 Zoster without complications; R82.71 Bacteriuria; E03.9 Hypothyroidism, unspecified; R79.89 Other specified abnormal findings of blood chemistry; E87.6 Hypokalemia; I48.91 Unspecified atrial fibrillation; I11.0 Hypertensive heart disease with heart failure; I50.30 Unspecified diastolic (congestive) heart failure; Z91.148 Patient's other noncompliance with medication regimen for other reason; Z79.01 Long term (current) use of anticoagulants; Z79.890 Hormone replacement therapy; Z79.899 Other long term (current) drug therapy; Z88.0 Allergy status to penicillin; Z88.5 Allergy status to narcotic agent; Z95.0 Presence of cardiac pacemaker
CPT/HCPCS: 36415; 71045; 80053; 81003; 81015; 82805; 83605; 83735; 84443; 84484; 85025; 93005; G0378; J7120

== ENCOUNTER 2022-10-08 20:36 | Inpatient (IN) | payer MEDICARE, BC ==
[2022-10-08] MEDS ORDERED: Morphine 2 MG/ML VIAL ONE (23:23)
[2022-10-08] MEDS ORDERED: Ondansetron PF 4 MG/2 ML Vial ONE (23:23)
[2022-10-09 07:55] LABS: #Basophils 0.1 thou/uL (0.0-0.2); #Lymphocytes 1.3 thou/uL (1.20-3.40); #Monocytes 0.6 thou/uL (0.11-0.59); #Neutrophils 3.6 thou/uL (1.40-6.50); %Basophils 1.2 % (0.0-1.0); %Eosinophils 0.7 % (0.0-10.0); %Lymphocytes 23.7 % (21.0-51.0); %Monocytes 10.6 % (0.0-10.0); %Neutrophils 63.9 % (42.0-75.0); Hemoglobin 9.7 g/dL (12.0-16.0); Mean Corpuscular HGB CONC 33.8 g/dL (32.0-36.0); Mean Corpuscular Hemoglobin 31.6 pg (27.0-31.0); Mean Corpuscular Volume 93.3 fl (78.0-98.0); Mean Platelet Volume 8.2 fL (7.4-10.4); Platelet Count 179 10x3/uL (130-400); RBC Distribution Width 13.7 % (11.5-14.5); Red Blood Cell (RBC) Count 3.07 mill/uL (4.20-5.40); White Blood Cell (WBC) Count 5.6 10x3/uL (4.8-10.8)
[2022-10-09 08:19] LABS: ALT (SGPT) 13 U/L (8-55); AST (SGOT) 16 U/L (5-34); Albumin 3.2 g/dL (3.4-4.8); Alkaline Phosphatase 41 U/L (40-110); Anion Gap 16 mmol/L (10-20); BUN (Urea Nitrogen) 17 mg/dL (9.8-20.1); Bilirubin, Total 0.5 mg/dL (0.2-1.2); Calc. Creatinine Clearance 0 mL/min (70-130); Calcium 8.9 mg/dL (7.8-10.44); Carbon Dioxide 19 mmol/L (23-31); Chloride 104 mmol/L (98-107); Estimated GFR 64; Globulin 3.4 g/dL (2.4-3.5); Glucose 92 mg/dL (83-110); Potassium 4.6 mmol/L (3.5-5.1); Protein, Total 6.6 g/dL (5.8-8.1); Sodium 134 mmol/L (136-145)
[2022-10-09] MEDS ORDERED: Carvedilol 6.25 MG TAB PO SCH (13:45)
[2022-10-09] MEDS ORDERED: Losartan 25 MG TAB PO SCH (13:45)
[2022-10-09] MEDS ORDERED: Dronedarone HCl 400 MG TAB PO SCH (13:45)
[2022-10-09] MEDS ORDERED: Apixaban 2.5 MG TAB PO SCH (13:45)
[2022-10-09] MEDS ORDERED: Polyethylene Glycol 3350 17 GM Packet PO SCH (14:15)
[2022-10-09] MEDS ORDERED: Ondansetron PF 4 MG/2 ML Vial ONE (14:30)
[2022-10-09] MEDS ORDERED: Morphine 2 MG/ML VIAL ONE (14:30)
[2022-10-09] MEDS: Acetaminophen 500 MG TAB PO SCH ×2 (15:31→20:08)
[2022-10-09] MEDS: traMADol HCl 50 MG TAB PO PRN (15:32)
[2022-10-09 16:08] VITALS: BMI 21.2
[2022-10-09] MEDS: Senokot S 8.6-50 MG TAB PO SCH (20:08)
[2022-10-09] MEDS: Apixaban 2.5 MG TAB PO SCH (20:09)
[2022-10-09] MEDS: Dronedarone HCl 400 MG TAB PO SCH (20:09)
[2022-10-09] MEDS: Gabapentin 100 MG CAP PO SCH (20:10)
[2022-10-09] MEDS: Carvedilol 6.25 MG TAB PO SCH (20:10)
[2022-10-10] MEDS: traMADol HCl 50 MG TAB PO PRN (02:28)
[2022-10-10] MEDS: Levothyroxine Sodium 112 MCG TAB PO SCH (05:44)
[2022-10-10] MEDS ORDERED: Baclofen 10 MG TAB PO PRN (07:39)
[2022-10-10] MEDS: Dronedarone HCl 400 MG TAB PO SCH ×2 (08:10→19:52)
[2022-10-10] MEDS: Cyanocobalamin (Vitamin B-12) 1,000 MCG TAB PO SCH (08:10)
[2022-10-10] MEDS: Folic Acid 1 MG TAB PO SCH (08:10)
[2022-10-10] MEDS: Senokot S 8.6-50 MG TAB PO SCH ×2 (08:10→19:52)
[2022-10-10] MEDS: Carvedilol 6.25 MG TAB PO SCH ×2 (08:10→19:52)
[2022-10-10] MEDS: Apixaban 2.5 MG TAB PO SCH ×2 (08:11→19:52)
[2022-10-10] MEDS: Gabapentin 100 MG CAP PO SCH ×2 (08:11→19:52)
[2022-10-10] MEDS: Acetaminophen 500 MG TAB PO SCH ×3 (08:12→19:51)
[2022-10-10] MEDS ORDERED: Cyclobenzaprine 10 MG TAB PO PRN (08:41)
[2022-10-10] MEDS ORDERED: Losartan 25 MG TAB PO SCH ×2 (09:00→17:15)
[2022-10-10] MEDS ORDERED: valACYclovir 500 MG TAB PO SCH (09:00)
[2022-10-10] MEDS ORDERED: Methocarbamol 500 MG TAB PO PRN (10:21)
[2022-10-11] MEDS: Levothyroxine Sodium 112 MCG TAB PO SCH (05:46)
[2022-10-11] MEDS: Gabapentin 100 MG CAP PO SCH ×2 (08:41→20:00)
[2022-10-11] MEDS: Dronedarone HCl 400 MG TAB PO SCH ×2 (08:41→20:00)
[2022-10-11] MEDS: Acetaminophen 500 MG TAB PO SCH ×3 (08:42→20:00)
[2022-10-11] MEDS: Carvedilol 6.25 MG TAB PO SCH ×2 (08:43→20:00)
[2022-10-11] MEDS: Cyanocobalamin (Vitamin B-12) 1,000 MCG TAB PO SCH (08:43)
[2022-10-11] MEDS: Senokot S 8.6-50 MG TAB PO SCH ×2 (08:43→19:59)
[2022-10-11] MEDS: Folic Acid 1 MG TAB PO SCH (08:43)
[2022-10-11] MEDS: Apixaban 2.5 MG TAB PO SCH ×2 (08:43→20:00)
[2022-10-11] MEDS ORDERED: Losartan 25 MG TAB PO SCH (09:00)
[2022-10-11 20:01] VITALS: BP 157/78
[2022-10-11 20:02] VITALS: TEMP 98.6
== END 2022-10-11 21:52 | DRG 565 ==
LOC: ERS 20:36 → T4-A 10-09 12:37 → OBSVTOIN 10-10 11:46
PROVIDERS: ADMIT Family Medicine; ATTEND Family Medicine
DX: M25.461 Effusion, right knee (principal); I13.0 Hypertensive heart and chronic kidney disease with heart failure and stage 1 through stage 4 chronic kidney disease, or unspecified chronic kidney disease; I50.32 Chronic diastolic (congestive) heart failure; M25.561 Pain in right knee; I48.91 Unspecified atrial fibrillation; K59.00 Constipation, unspecified; D64.9 Anemia, unspecified; E11.22 Type 2 diabetes mellitus with diabetic chronic kidney disease; N18.2 Chronic kidney disease, stage 2 (mild); E03.9 Hypothyroidism, unspecified; W18.30XA Fall on same level, unspecified, initial encounter; Z96.653 Presence of artificial knee joint, bilateral; Z79.01 Long term (current) use of anticoagulants; Z88.5 Allergy status to narcotic agent; Z88.0 Allergy status to penicillin; Z79.890 Hormone replacement therapy; Z79.899 Other long term (current) drug therapy; Z95.0 Presence of cardiac pacemaker; Z88.1 Allergy status to other antibiotic agents
CPT/HCPCS: 36415; 70450; 72125; 80053; 85025; 96374; 96375; 96376; G0378; J2272; J2405